=== PATIENT | male | born 1960 | race Caucasian/White ===

== ENCOUNTER 2016-04-21 15:08 | Emergency (ER) | payer OTHER ==
--- NOTE | 2016-04-21 15:56 | UCPHY ---
H & P Time Seen by Provider: 04/21/16 15:49 Patient Type: Established HPI/ROS: 55-year-old male presents complaining of cough nasal congestion, fevers chills and body aches of 2-3 days duration Complains of coughing up green sputum. Review of systems As per HPI General positive fever positive chills no weakness HEENT no eye pain no eye discharge. No eye redness, no sore throat Respiratory positive cough no shortness of breath Cardiac no chest pain, no peripheral edema GI no abdominal pain, no diarrhea, no constipation, no nausea, no vomiting no flank pain, no hematuria, no dysuria Musculoskeletal no myalgias, no joint pain Heme no easy bruising, no easy bleeding Endo no polyuria, no polydipsia Skin no rashes, no pruritus Neuro no syncope, no dizziness, no headaches Psych is no suicidal ideation, no homicidal ideation Past Medical/Surgical History: Noncontributory Social History: Drinks alcohol socially denies drug use Smoking Status: Never smoked Physical Exam: 55-year-old male Alert and oriented nontoxic appearance, no acute distress afebrile Atraumatic normocephalic Extraocular muscles intact, anicteric Nares mild yellowish discharge Oropharynx mild erythema no tonsillar swelling no exudate no uvular deviation, tolerating own secretions Neck supple no lymphadenopathy Lungs clear to auscultation bilaterally Heart regular rate and rhythm Abdomen normoactive bowel sounds soft nontender Extremities no cyanosis clubbing or edema Skin no rash Constitutional: Initial Vital Signs Temperature (C) 36.6 C 04/21/16 15:57 Heart Rate 72 04/21/16 15:57 Respiratory Rate 18 04/21/16 15:57 Blood Pressure 144/92 H 04/21/16 15:57 O2 Sat (%) 94 04/21/16 15:57 O2 Delivery Mode Room Air Allergies/Adverse Reactions: No Known Allergies Allergy (Unverified 08/29/15 17:13) Home Medications: Medication Instructions Recorded AZITHROMYCIN [Z-PACK] 250 mg PO DAILY #6 tab 04/21/16 Benzonatate [Tessalon Pearles (RX)] 100 mg PO TID PRN #30 cap 04/21/16 Medical Decision Making ED Course/Re-evaluation: Patient seen and evaluated for cough cold, nasal congestion, body aches Influenza negative Strep screen negative Physical exam consistent with bronchitis Differential diagnosis Pneumonia, bronchitis, URI, viral syndrome, influenza, strep throat Impression Bronchitis Plan Azithromycin Tessalon Perles Fluticasone Follow-up PCP - Data Points Laboratory Results: 04/21/16 04/21/16 Unknown 16:00 Influenza Typ A,B (DFA) NEGATIVE FOR FLU (NEGATIVE) Group A Strep Screen NEGATIVE (NEGATIVE) Group A Strep DNA Pending Departure - Departure Disposition: Home, Routine, Self-Care Clinical Impression: Bronchitis Condition: Good Instructions: Acute Bronchitis (ED) Referrals: [place],. [Primary Care Provider] - As per Instructions Prescriptions: Benzonatate [Tessalon Pearles (RX)] 100 mg PO TID PRN #30 cap PRN Reason: Cough, Moderate AZITHROMYCIN [Z-PACK] 250 mg PO DAILY #6 tab - PQRS PQRS Measurement: Not applicable
[2016-04-21 16:00] VITALS: BP 144/92; PULSE 72; RESP 18; TEMP 98; O2SAT 94
== END 2016-04-21 16:46 | disposition home or self-care (01) ==
LOC: CED 15:08
DX: J40 Bronchitis, not specified as acute or chronic (principal)
CPT/HCPCS: 87400-PO; 87880-PO; 99214-PO; G0463-PO